=== PATIENT | female | born 1985 | race Caucasian/White ===

== ENCOUNTER 2020-12-30 12:20 | Emergency (ER) | payer OTHER, SELFPAY ==
[2020-12-30 12:21] VITALS: BP 132/80; PULSE 95; RESP 17; TEMP 36.7; O2SAT 100; BMI 21.7
--- NOTE | 2020-12-30 12:53 | EKG12_ITS ---
Test Reason : CP Blood Pressure : / mmHG Vent. Rate : 083 BPM Atrial Rate : 083 BPM P-R Int : 138 ms QRS Dur : 076 ms QT Int : 350 ms P-R-T Axes : 073 077 057 degrees QTc Int : 411 ms Normal sinus rhythm Nonspecific ST abnormality Abnormal ECG Confirmed by JULITA KELLY, FEDERICO ([id number]), editor publications LORI MCGUIRE ([id number]) on 01/02/2021 11:00:12 AM Referred By: AC Confirmed By:FEDERICO CANCINO MD
--- NOTE | 2020-12-30 13:10 | RAD_ITS ---
STUDY: X-RAY CHEST REASON FOR EXAM: Female, 35 years old. Chest pain with radiation to the right side of the thorax. TECHNIQUE: Single AP portable view of the chest. COMPARISON: None. FINDINGS: EKG electrodes are seen. The lungs are clear and expanded. There is no demonstrated pleural abnormality. Normal size heart. Normal mediastinum and baldo. Normal visualized pulmonary arteries. Normal visualized aortic arch and descending thoracic aorta. Normal visualized thoracic spine. Normal visualized ribs, clavicles, and shoulders. There is no demonstrated abnormality of the visualized soft tissue structures of the upper abdomen. RAD/Chest 1 View (Portable) IMPRESSION: Normal x-ray examination of the chest. Electronically Signed: Paulino Mancini MD at 13:27 EDT , Service support ,
[2020-12-30 13:18] LABS: Absolute Lymphocyte Count 1.29 X10^3/uL (0.83-4.51); Absolute Neutrophil Count 3.3 X10^3/uL (2.0-7.7); Basophil# 0.06 X10^3/uL; Basophil% 1.2 % (0-1); Eosinophil# 0.06 X10^3/uL; Eosinophils% 1.2 % (0-5); Hematocrit 40.5 % (37-47); Hemoglobin 13.4 g/dL (12.0-15.0); Lymphocyte # 1.29 X10^3/ul (0.83-4.51); Lymphocyte % 25.1 % (19-41); Mean Corp Hgb Conc 33.1 g/dL (32-36); Mean Corpuscular Hgb 29.1 pg (27.0-32.0); Mean Platelet Vol. 10.9 fl (6.2-12.0); Monocyte# 0.43 X10^3/uL; Monocyte% 8.4 % (0-10); NRBC Flagged by Analyzer 0 % (0-5); Neutrophil # 3.28 X10^3/uL (2.7-7.7); Neutrophil % 63.9 % (47-70); Platelet Count 240 K/mm3 (150-450); RBC Distribution Width CV 12.4 % (11.6-14.6); RBC Distribution Width SD 39.6 fl (35.1-43.9); White Blood Count 5.1 K/mm3 (4.4-11.0)
--- NOTE | 2020-12-30 13:28 | EDS_ITS ---
HPI History of Present Illness Chief Complaint: Chest Pain Informant: patient Narrative Narrative: Patient is a 35-year-old previously healthy female who presents to the emergency department for right-sided chest pain. It started earlier today on the drive to work. The pain has been coming and going. She states that it is random. She does not know aggravating or relieving factors. Taking a deep breath does not seem to make it worse. She did have some pain when walking earlier. She describes the pain as sharp and stabbing. When it gets very bad it goes up the right side of her neck. She denies any significant shortness of breath. She denies any recent illness including any cough, cold, congestion. No fevers or chills. No back pain or abdominal pain. No headache. She denies any leg swelling or calf pain. No personal history of DVT/PE/CAD. She has not tried taking anything for this. [facility] Medical History (Updated 12/30/20 @ 15:[address] Konstantin Patel DO) History of rheumatic fever as a child Home Medications multivitamin 1 tab PO DAILY 12/30/20 [History Last Taken Unknown] Allergy/AdvReac Type Severity Reaction Status Date / Time Sulfa (Sulfonamide Allergy Swelling Verified 12/30/20 12:23 Antibiotics) Social History Smoking Status: Never smoker ROS ROS ED Constitutional Constitutional ED: Denies chills or fever(s) Eyes Eyes: Denies change in vision ENT ENT ED: Denies epistaxis or rhinorrhea Cardiovascular Cardiovascular: Reports chest pain; Denies palpitations Respiratory/Chest Respiratory/Chest: Denies cough, dyspnea or dyspnea on exertion Gastrointestinal Gastrointestinal: Denies abdominal pain, diarrhea, nausea or vomiting Musculoskeletal Musculoskeletal: Denies back pain or neck pain Integumentary Denies rash Neurologic Neurologic: Denies dizziness, headache(s) or weakness EXAM Physical Exam Const Vital Signs: 12/30/20 12:21 12/30/20 13:10 12/30/20 13:30 Temperature 98.0 F Temperature Source Temporal Pulse Rate 95 86 Respiratory Rate 17 16 Respiratory Effort Non-Labored Respiratory Pattern Normal Blood Pressure 132/80 H 123/77 H Blood Pressure Mean 97 92 Pulse Ox 100 Oxygen Delivery Method Room Air 12/30/20 14:15 12/30/20 15:18 Temperature Temperature Source Pulse Rate 76 78 Respiratory Rate 14 16 Respiratory Effort Respiratory Pattern Blood Pressure 124/75 H 116/65 Blood Pressure Mean 91 Pulse Ox 97 100 Oxygen Delivery Method Room Air Positive well nourished and well developed General Appearance ED: well developed and NAD HEENT Reports normocephalic and head/scalp atraumatic Eyes PERRL and EOMs intact bilaterally Neck no lymphadenopathy and supple General: Negative for tenderness Chest Wall inspection of chest normal Resp normal respiratory effort and clear to auscultation bilaterally Auscultation: Negative for rales, rhonchi or wheezes Cardio regular rate, regular rhythm and no murmurs GI normal to inspection, nondistended, normoactive bowel sounds and non-tender Palpation: soft; Negative for guarding or rebound tenderness present Extremity normal to inspection General Extremety ED: Negative for edema or tenderness General Extremity: Negative for edema Neuro oriented x3, CN's II-XII intact bilaterally and no sensory deficits noted Sensorium / Orientation: alert Motor Exam: strength 5/5 throughout Psych mental status grossly normal Skin no rashes or lesions noted Heart Score History: Slightly/Non-Suspicious ECG: Normal Age: </= 45 years Risk Factors: No Risk Factors Score: 0 MDM MDM MDM Narrative Medical decision making narrative: Patient presents to the ED for intermittent chest pain. It does come and go randomly. On arrival to the ED vital signs within normal limits. She is not tachycardic. She is satting 100% on room air. She has a benign physical exam. EKG, chest x-ray basic lab work being obtained. Patient's troponin well within normal limits. EKG did not show any signs of ischemia or arrhythmia. Her D-dimer was elevated so we did a CT scan of the chest. This did not reveal any evidence of pulmonary embolism. After the dose of Toradol she is feeling much better. I have low concern for ACS, thromboembolism, aortic catastrophe after work-up. She does feel comfortable going home at this time. Return precautions are reviewed with her including any worsening symptoms. She understands and is agreeable this plan. She is to follow-up with her PCP. All questions were answered. Lab Data Labs: Laboratory Results - last 24 hr 12/30/20 12/30/20 12/30/20 13:10 13:10 13:44 WBC 5.1 RBC 4.60 Hgb 13.4 Hct 40.5 MCV 88.0 MCH 29.1 MCHC 33.1 RDW Std Deviation 39.6 RDW Coeff of Abida 12.4 Plt Count 240 MPV 10.9 Immature Gran % (Auto) 0.200 Neut % (Auto) 63.9 Lymph % (Auto) 25.1 [place] % (Auto) 8.4 Eos % (Auto) 1.2 Baso % (Auto) 1.2 H Absolute Neuts (auto) 3.3 Absolute Lymphs (auto) 1.29 Nucleated RBC % 0 D-Dimer Quant (PE/DVT) 0.70 H* Sodium 141 Potassium 3.6 Chloride 109 H Carbon Dioxide 27.0 Anion Gap 5 BUN 9 Creatinine 0.77 Estim Creat Clear Calc 94.55 Est GFR (MDRD) Af Amer 109 Est GFR (MDRD) Non-Af 90 BUN/Creatinine Ratio 11.7 Glucose 109 H Calcium 9.1 Troponin I High Sens 3.4 Serum , Qual 12/30/20 14:15 WBC RBC Hgb Hct MCV MCH MCHC RDW Std Deviation RDW Coeff of Abida Plt Count MPV Immature Gran % (Auto) Neut % (Auto) Lymph % (Auto) [place] % (Auto) Eos % (Auto) Baso % (Auto) Absolute Neuts (auto) Absolute Lymphs (auto) Nucleated RBC % D-Dimer Quant (PE/DVT) Sodium Potassium Chloride Carbon Dioxide Anion Gap BUN Creatinine Estim Creat Clear Calc Est GFR (MDRD) Af Amer Est GFR (MDRD) Non-Af BUN/Creatinine Ratio Glucose Calcium Troponin I High Sens Serum , Qual NEGATIVE Radiography Diagnostic Testing: Radiology Impression Chest X-Ray 12/30/20 13:10 IMPRESSION: Normal x-ray examination of the chest. Electronically Signed: Paulino Mancini MD at 13:27 EDT , Service support , Chest CTA 12/30/20 14:15 IMPRESSION: Normal CTA chest examination, without a demonstrated pulmonary embolism or arterial dissection. Electronically Signed: Paulino Mancini MD at 15:09 EDT , Service support , EKG Initial EKG: Attestation: I personally reviewed and interpreted this EKG as follows: (Rate of 83 bpm and normal sinus rhythm. Normal intervals. Normal axis. No significant ST elevations or depressions. No T wave abnormalities.) Discharge Plan Triage Chief Complaint: Chest Pain ED Provider: Konstantin Patel Dx/Rx/DC Orders Clinical Impression: Chest pain Instructions: ED Chest Pain, Noncardiac Prescriptions: No Action multivitamin Tablet 1 tab PO DAILY RF: 0 Primary Care Provider: Paulette Lambert NP Referrals: Paulette Lambert NP, [employer] [facility] [Primary Care Provider] - 2 Days Disposition Disposition: Home, Self Care Discharge Date/Time: 12/30/20 15:19
[2020-12-30 13:30] VITALS: BP 123/77; PULSE 86; RESP 16
[2020-12-30 13:39] LABS: Anion Gap 5 (5-15); BUN 9 mg/dL (7-18); BUN/Creat Ratio 11.7 RATIO (10-20); Calcium,Total 9.1 mg/dL (8.5-10.1); Chloride 109 mmol/L (98-107); Creatinine, Serum 0.77 mg/dL (0.55-1.02); EST Glomerular Filtration Rate 90 mL/min (>60); Est Glom Filt Rate - Afr Amer 109 mL/min (>60); Estimated Creatinine Clearance 94.55 ml/min; Glucose 109 mg/dL (74-106); Potassium 3.6 mmol/L (3.5-5.1); Sodium Level 141 mmol/L (136-145); Troponin-I HS 3.4 pg/mL (3.0-53.7)
[2020-12-30] MEDS: Ketorolac 15 MG/ML Vial IV (14:14)
[2020-12-30 14:15] VITALS: BP 124/75; PULSE 76; RESP 14; O2SAT 97
--- NOTE | 2020-12-30 14:15 | CT_ITS ---
STUDY: CTA CHEST REASON FOR EXAM: Female, 35 years old. Elevated d-dimer., right sided CP RADIATION DOSAGE (If Supplied By Facility): CTDIvol = ( 3.31 ) mGy, DLP = ( 123.25 ) mGycm TECHNIQUE: The examination was performed with the intravenous administration of IV 100mL Isovue-370. Post-processing of the angiographic images was performed, with multiplanar reformation and 3D reconstruction. Individualized dose optimization techniques were used for this CT. COMPARISON: None. FINDINGS: Normal enhancement of the main pulmonary artery and right and left pulmonary arteries. Normal enhancement of the bilateral peripheral pulmonary arteries. There is no demonstrated pulmonary embolism. Normal thoracic aorta and visualized great vessels. There is no demonstrated aortic dissection. Normal heart and pericardium. Normal mediastinum. Normal hilar regions. Normal visualized trachea and bronchi. The lungs are well expanded. Normal pulmonary parenchyma. Normal pleura. Normal chest wall structures. Normal osseous structures. Normal visualized upper abdomen. CT/CTA Chest W/WO Contrast IMPRESSION: Normal CTA chest examination, without a demonstrated pulmonary embolism or arterial dissection. Electronically Signed: Paulino Mancini MD at 15:09 EDT , Service support ,
[2020-12-30 14:37] LABS: Internal QC Validated? YES +Cl - CLEAR BKGD; Pregnancy, Serum, hCG Quali. NEGATIVE Negative
[2020-12-30 15:18] VITALS: BP 116/65; PULSE 78; RESP 16; O2SAT 100
== END 2020-12-30 15:19 | disposition home or self-care (01) ==
PROVIDERS: Emergency Provider Emergency Medicine; PCP Registered Nurse
DX: R07.89 Other chest pain (principal); R79.89 Other specified abnormal findings of blood chemistry
CPT/HCPCS: 71045; 71275; 80048; 84484; 84703; 85025; 85379; 93005; 96374; 99285; Q9967; A4216